=== PATIENT | female | born 1975 | race Caucasian/White ===

== ENCOUNTER 2018-12-30 20:27 | Emergency (ER) | payer SELFPAY ==
[~2018-12-30] VITALS: Ht 147.3 cm; Wt 48.1 kg
[~2018-12-30 20:27] MED LIST: NAPROSYN500 MG PO; PREDNISONE50 MG PO; ROBAXIN500 M1 PO
[2018-12-30 21:20] LABS: BASO # 0.1 10*3/uL (0.0-0.1); BASO % 0.8 % (0.0-1.0); EOS # 0.2 10*3/uL (0.0-0.4); EOS % 3.1 % (1.0-4.0); HEMATOCRIT 27.4 % (37.0-47.0); HEMOGLOBIN 7.8 g/dl (12.0-16.0); LYMPH # 2.2 10*3/uL (1.3-4.4); LYMPH % 30.5 % (27.0-41.0); MEAN CELL VOLUME 72.7 fl (81.0-99.0); MEAN CORPUSCULAR HGB 20.7 pg (27.0-31.0); MEAN CORPUSCULAR HGB CONC 28.5 g/dl (33.0-37.0); MEAN PLATELET VOLUME 10.2 fl (9.6-12.3); MONO # 0.8 10*3/uL (0.1-1.0); MONO % 10.7 % (3.0-9.0); NEUT # 3.9 10*3/uL (2.3-7.9); NEUT % 54.6 % (47.0-73.0); PLATELET COUNT AUTOMATED 325 10*3/uL (130-400); RED BLOOD COUNT 3.77 10*6/uL (4.10-5.10); RED CELL DISTRI WIDTH 17.6 % (0-14.5); WHITE BLOOD COUNT 7.2 10*3/uL (4.8-10.8)
[2018-12-30 21:35] LABS: ALBUMIN 3.5 gm/dl (3.1-4.5); ALKALINE PHOSPHATASE 69 U/L (45-117); BUN 16 mg/dl (7-24); CHLORIDE 111 mmol/L (98-107); POTASSIUM 3.1 mmol/L (3.5-5.1); SGOT/AST 16 IU/L (3-35); SGPT/ALT 15 U/L (12-78); SODIUM 142 mmol/L (136-145); TOTAL PROTEIN 6.9 gm/dL (6.4-8.2)
[2018-12-30] MEDS ORDERED: K-TAB20 MEQ PO (23:18)
== END 2018-12-30 23:46 | disposition home or self-care (01) ==
LOC: ED 20:27
PROVIDERS: Physician Assistant
DX: R51 Headache (principal); R11.2 Nausea with vomiting, unspecified; R63.0 Anorexia; F17.200 Nicotine dependence, unspecified, uncomplicated; Z88.6 Allergy status to analgesic agent

== ENCOUNTER 2019-01-03 02:32 | Inpatient (IN) | payer SELFPAY ==
[~2019-01-03] VITALS: Ht 147.3 cm; Wt 49.1 kg
--- NOTE | ~2019-01-03 | EKG ---
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
--- NOTE | ~2019-01-03 | EKG ---
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
[~2019-01-03 02:32] MED LIST changes: +K-TAB20 MEQ PO
[2019-01-03 02:36] VITALS: BP 134/74
[2019-01-03 02:58] LABS: BASO # 0.1 10*3/uL (0.0-0.1); BASO % 0.7 % (0.0-1.0); EOS # 0.4 10*3/uL (0.0-0.4); EOS % 3.5 % (1.0-4.0); HEMATOCRIT 29.3 % (37.0-47.0); HEMOGLOBIN 8.1 g/dl (12.0-16.0); LYMPH # 2.7 10*3/uL (1.3-4.4); MEAN CELL VOLUME 74.4 fl (81.0-99.0); MEAN CORPUSCULAR HGB 20.6 pg (27.0-31.0); MEAN CORPUSCULAR HGB CONC 27.6 g/dl (33.0-37.0); MEAN PLATELET VOLUME 10.2 fl (9.6-12.3); MONO # 0.8 10*3/uL (0.1-1.0); MONO % 7.7 % (3.0-9.0); NEUT # 6.1 10*3/uL (2.3-7.9); NEUT % 60.8 % (47.0-73.0); PLATELET COUNT AUTOMATED 341 10*3/uL (130-400); RED BLOOD COUNT 3.94 10*6/uL (4.10-5.10); RED CELL DISTRI WIDTH 18.1 % (0-14.5); WHITE BLOOD COUNT 10.1 10*3/uL (4.8-10.8)
[2019-01-03 03:15] LABS: ALBUMIN 3.4 gm/dl (3.1-4.5); ALKALINE PHOSPHATASE 72 U/L (45-117); BUN 12 mg/dl (7-24); CHLORIDE 111 mmol/L (98-107); CREATININE 0.49 mg/dL (0.55-1.02); LIPASE 126 U/L (73-393); POTASSIUM 2.9 mmol/L (3.5-5.1); SGOT/AST 15 IU/L (3-35); SGPT/ALT 15 U/L (12-78); SODIUM 140 mmol/L (136-145); TOTAL PROTEIN 6.8 gm/dL (6.4-8.2)
[2019-01-03 03:18] LABS: BETA-HCG, QUANT < 1.0 mIU/mL (1-3)
--- NOTE | 2019-01-03 04:08 | NUR ---
PROMPTED PATIENT FOR URINE AT THIS TIME. PER PATIENT SHE WILL TRY TO PROVIDE URINE SAMPLE. RESPIRATIONS EASY, NON-LABORED ON ROOM AIR. PATIENT RESTING QUIETLY IN BED AT THIS TIME WITH EYES CLOSED. PER PATIENT PAIN IS STILL THE SAME.
[2019-01-03 04:54] LABS: BILIRUBIN NEGATIVE (NEGATIVE); BLOOD TRACE-INTACT (NEGATIVE); CLARITY SL CLOUDY (CLEAR); COLOR YELLOW (YELLOW); GLUCOSE NEGATIVE (NEGATIVE); KETONE 1+ (NEGATIVE); LEUKO ESTERASE 1+ (NEGATIVE); NITRITE POSITIVE (NEGATIVE); PH 5.5 (5.0-9.0); SPECIFIC GRAVITY >= 1.030 (1.005-1.030); UROBILINOGEN 0.2 E.U./dl (0.2-1.0)
[2019-01-03 05:06] LABS: BACTERIA 4+; RBC 0-2 rbc/hpf (0-2); WBC 31-40 wbc/hpf (0-5)
[2019-01-03 05:52] VITALS: BP 110/78
--- NOTE | 2019-01-03 09:29 | NUR ---
ABD PAIN RATED 7/10. ASKED IF SHE WOULD LIKE TYELNOL ORDERD. PT DECLINED. CALL LIGHT IN REACH. AT BEDSIDE. HR 60s PER CM.
[2019-01-03 10:36] LABS: CHLORIDE 111 mmol/L (98-107); POTASSIUM 3.3 mmol/L (3.5-5.1); SODIUM 140 mmol/L (136-145)
[2019-01-03 10:42] LABS: BUN 11 mg/dl (7-24); CREATININE 0.46 mg/dL (0.55-1.02)
[2019-01-03 12:00] VITALS: BP 115/61
--- NOTE | 2019-01-03 15:47 | NUR ---
CT NOTIFIED PT HAS FINISHED BARIUM AND IS READY FOR IMAGING.
[2019-01-03 16:00] VITALS: BP 108/72
--- NOTE | 2019-01-03 17:32 | NUR ---
OFF FLOOR FOR CT.
[2019-01-03 20:00] VITALS: BP 121/66
[2019-01-04] VITALS (9 sets, daily range): BP systolic 75–124; BP diastolic 33–66
--- NOTE | 2019-01-04 12:37 | NUR ---
[employer] in to talk to patient. Patient states lives at HOME with AND KIDS. There are NO steps in the home. Physician: NONE AT THIS TIME Pharmacy: [facility] Home health services: NONE Patient's level of ADLs: INDEPENDENT Patient has working utilities: YES DME: NO Follow-up physician's appointment after d/c: DOES NOT HAVE PCP AT THIS TIME. Does patient want to access PORTAL?: NO Discharge plan PT LIVES AT HOME WITH AND KIDS. STATES SHE WILL RETURN HOME ON DISCHARGE AND WILL HAVE NO NEEDS. WILL CONTINUE TO FOLLOW. PT STATES SHE WILL HAVE A RIDE HOME ON DISCHARGE. THALIA EVERETT
--- NOTE | 2019-01-04 12:42 | NUR ---
PATIENT IN SURGERY.
[2019-01-05] VITALS: BP 109/65
[2019-01-05 08:00] VITALS: BP 109/58
[2019-01-05] MEDS ORDERED: CLARITHROM250 MG/5 M PO (10:56)
[2019-01-05] MEDS ORDERED: PANTOPRAZOLE SO40 MG PO (10:56)
[2019-01-05] MEDS ORDERED: AMOXICILLIN500 M2 PO (10:56)
--- NOTE | 2019-01-05 11:06 | NUR ---
PT DENIES ANY NEEDS ON DISCHARGE. WILL CONTINUE TO FOLLOW.
--- NOTE | 2019-01-05 11:47 | NUR ---
Discharge instructions reviewed with patient/family. Patient receptive and verbalizes understanding. Follow-up care arranged. Written instructions given to patient/family. CARMELO LAZCANO
--- NOTE | 2019-01-05 11:59 | NUR ---
PT WALKED OUT IN CARE OF SPOUSE. DECLINED WHEELCHAIR.
== END 2019-01-05 12:00 | disposition home or self-care (01) | DRG 384 ==
LOC: ED 02:32 → EDHOLD 04:53 → 5E 05:11
PROVIDERS: Student in an Organized Health Care Education/Training Program; ADMIT Internal Medicine
PROC: 0DB68ZX Excision of Stomach, Via Natural or Artificial Opening Endoscopic, Diagnostic (ICD-10-PCS; principal; 2019-01-04)
DX: K25.9 Gastric ulcer, unspecified as acute or chronic, without hemorrhage or perforation (principal); E44.0 Moderate protein-calorie malnutrition; K29.70 Gastritis, unspecified, without bleeding; E87.6 Hypokalemia; E87.8 Other disorders of electrolyte and fluid balance, not elsewhere classified; G89.29 Other chronic pain; D25.9 Leiomyoma of uterus, unspecified; K20.9 Esophagitis, unspecified; Z90.49 Acquired absence of other specified parts of digestive tract; Z98.51 Tubal ligation status; Z98.891 History of uterine scar from previous surgery; Z83.3 Family history of diabetes mellitus; Z88.8 Allergy status to other drugs, medicaments and biological substances; Z98.2 Presence of cerebrospinal fluid drainage device; Z79.899 Other long term (current) drug therapy; Z68.22 Body mass index [BMI] 22.0-22.9, adult

== ENCOUNTER 2019-05-27 11:30 | Emergency (ER) | payer SELFPAY ==
[~2019-05-27] VITALS: Ht 147.3 cm; Wt 52.2 kg
[~2019-05-27 11:30] MED LIST changes: +AMOXICILLIN500 M2 PO; +CLARITHROM250 MG/5 M PO; +PANTOPRAZOLE SO40 MG PO
[2019-05-27 12:54] LABS: BASO # 0.1 10*3/uL (0.0-0.1); BASO % 0.9 % (0.0-1.0); EOS # 0.2 10*3/uL (0.0-0.4); EOS % 1.9 % (1.0-4.0); HEMATOCRIT 29.6 % (37.0-47.0); HEMOGLOBIN 8.1 g/dl (12.0-16.0); LYMPH # 1.5 10*3/uL (1.3-4.4); LYMPH % 19.5 % (27.0-41.0); MEAN CELL VOLUME 72.9 fl (81.0-99.0); MEAN CORPUSCULAR HGB CONC 27.4 g/dl (33.0-37.0); MEAN PLATELET VOLUME 9.9 fl (9.6-12.3); MONO # 0.5 10*3/uL (0.1-1.0); MONO % 6.5 % (3.0-9.0); NEUT # 5.6 10*3/uL (2.3-7.9); NEUT % 70.9 % (47.0-73.0); PLATELET COUNT AUTOMATED 347 10*3/uL (130-400); RED BLOOD COUNT 4.06 10*6/uL (4.10-5.10); RED CELL DISTRI WIDTH 17.4 % (0-14.5); WHITE BLOOD COUNT 7.8 10*3/uL (4.8-10.8)
[2019-05-27 13:07] LABS: ACT PARTIAL THROMBO TIME 24.2 SECONDS (20.0-32.1); INTERNATIONAL NORM RATIO 0.9 (2.0-3.5)
[2019-05-27 13:10] LABS: ALBUMIN 3.7 gm/dl (3.1-4.5); ALKALINE PHOSPHATASE 77 U/L (45-117); BUN 13 mg/dl (7-24); CHLORIDE 112 mmol/L (98-107); CREATININE 0.57 mg/dL (0.55-1.02); POTASSIUM 4.1 mmol/L (3.5-5.1); SGOT/AST 20 IU/L (3-35); SGPT/ALT 18 U/L (12-78); SODIUM 141 mmol/L (136-145); TOTAL PROTEIN 7.3 gm/dL (6.4-8.2)
[2019-05-27] MEDS ORDERED: NAPROSYN500 MG PO (15:34)
[2019-05-27] MEDS ORDERED: TYLENOL325 M1 PO (15:34)
[2019-05-27 15:54] LABS: BILIRUBIN NEGATIVE (NEGATIVE); BLOOD 2+ (NEGATIVE); CLARITY SL CLOUDY (CLEAR); COLOR YELLOW (YELLOW); GLUCOSE NEGATIVE (NEGATIVE); KETONE TRACE (NEGATIVE); LEUKO ESTERASE 1+ (NEGATIVE); NITRITE POSITIVE (NEGATIVE); UROBILINOGEN 0.2 E.U./dl (0.2-1.0)
[2019-05-27 16:00] LABS: BACTERIA 4+; MUCOUS 1+; RBC 0-2 rbc/hpf (0-2); WBC 31-40 wbc/hpf (0-5)
== END 2019-05-27 15:47 | disposition home or self-care (01) ==
LOC: ED 11:30
PROVIDERS: Emergency Medicine
DX: G89.29 Other chronic pain (principal); R10.2 Pelvic and perineal pain; D64.9 Anemia, unspecified; D25.9 Leiomyoma of uterus, unspecified; Z98.2 Presence of cerebrospinal fluid drainage device; Z88.6 Allergy status to analgesic agent; Z79.899 Other long term (current) drug therapy; Z79.2 Long term (current) use of antibiotics; Z90.49 Acquired absence of other specified parts of digestive tract; Z98.51 Tubal ligation status

== ENCOUNTER 2025-01-20 13:41 | Emergency (ER) | payer SELFPAY ==
[~2025-01-20] VITALS: Ht 147.3 cm; Wt 45.4 kg
[~2025-01-20 13:41] MED LIST changes: +TYLENOL325 M1 PO
[2025-01-20] MEDS ORDERED: NAPROSYN500 MG PO (15:52)
[2025-01-20] MEDS ORDERED: SEPTDS PO (15:52)
[2025-01-20] MEDS ORDERED: NAPROXEN 250 MG TAB PO ONE (15:55)
[2025-01-20] MEDS ORDERED: Sulfamethoxazole/Trimethopri 1 TAB TAB PO ONE (15:55)
== END 2025-01-20 15:57 | disposition home or self-care (01) ==
LOC: ED 13:41
DX: L02.31 Cutaneous abscess of buttock (principal); Z88.6 Allergy status to analgesic agent; Z79.899 Other long term (current) drug therapy; Z98.890 Other specified postprocedural states; Z90.49 Acquired absence of other specified parts of digestive tract